=== PATIENT | female | born 1985 | race African-American/Black ===

== ENCOUNTER 2017-09-03 07:10 | Inpatient (IN) | payer OTHER ==
[~2017-09-03 07:10] MED LIST: CITRIC ACID/SODIUM CITRATE 30 ML UNIT-DOSE CUP PO ONE; ELECTROLYTE-148 SOLN 500 ML IV ONE
[2017-09-03] MEDS ORDERED: ELECTROLYTE-148 SOLN 1,000 ML IV SCH ×2 (07:30→08:00)
--- NOTE | 2017-09-03 07:58 | HP ---
Past Medical History - Primary Care Physician PCP:: Jose Armando Salazar - Admission Chief Complaint: 39 weeks, previous c/s for repeat c/s and BTL History Source: Patient Limitations to Obtaining History: No Limitations - Past Medical History ...: 4 ...Para: 3 Infectious Disease: Yes: Other (herpes) - Past Surgical History Past Surgical History: Yes: Hx Myomectomy: No Hx Transabdominal Cerclage: No - Smoking History Smoking history: Never smoked Have you smoked in the past 12 months: No Aproximately how many cigarettes per day: 0 - Alcohol/Substance Use Hx Alcohol Use: No - Social History Usual Living Arrangement: Yes: With Spouse History of Recent Travel: No Home Medications - Allergies Allergies/Adverse Reactions: Allergies Allergy/AdvReac Type Severity Reaction Status Date / Time aspirin Allergy Itching Verified 09/03/17 07:49 - Home Medications Home Medications: Ambulatory Orders Acyclovir [Zovirax -] 800 mg PO DAILY 09/03/17 Ferrous Sulfate [Feosol] 325 mg PO DAILY 09/03/17 Vitamins (Sjr) - 1 tab PO DAILY 09/03/17 Review of Systems - Review of Systems Constitutional: reports: No Symptoms Eyes: reports: No Symptoms HENT: reports: No Symptoms Neck: reports: No Symptoms Cardiovascular: reports: No Symptoms Respiratory: reports: No Symptoms Gastrointestinal: reports: No Symptoms Genitourinary: reports: No Symptoms Breasts: reports: No Symptoms Reported Musculoskeletal: reports: No Symptoms Integumentary: reports: No Symptoms Neurological: reports: No Symptoms Endocrine: reports: No Symptoms Hematology/Lymphatic: reports: No Symptoms Psychiatric: reports: No Symptoms Physical Exam - Maternity Constitutional: Yes: Well Nourished, No Distress, Calm Eyes: Yes: WNL, Conjunctiva Clear, EOM Intact HENT: Yes: WNL, Atraumatic, Normocephalic Neck: Yes: WNL, Supple, Trachea Midline Cardiovascular: Yes: WNL, Regular Rate and Rhythm Breast(s): Yes: WNL - Abdominal Exam/OB Fundal Height: 40 Number of Fetuses: Single Presentation: Vertex Contractions: No Intensity: Unaware Monitor Mode: External Accelerations: Uniform Decelerations: None - Vaginal Exam/OB Vaginal Bleediing: No Speculum Exam: No Dilatation (cm): closed Effacement (%): 0 Amniotic Membrane Status: Intact Presentation: Vertex/Position Station: -3 - Physical Exam Edema: Yes Edema: LLE: Trace, RLE: Trace Deep Tendon Reflex Grade: Normal +2 Hemorrhage Risk Assessment - Risk Factors Medium Risk Factors: Yes: Prior , uterine surgery,or multiple laparotomies Risk Score: 1 Risk Level: Medium Risk Problem List - Problems (1) with 39 completed weeks gestation Code(s): Z3A.39 - 39 WEEKS GESTATION OF (2) Previous delivery affecting , antepartum Code(s): O34.219 - MATERNAL CARE FOR UNSP TYPE SCAR FROM PREVIOUS DEL (3) Sterilization Code(s): Z30.2 - ENCOUNTER FOR STERILIZATION Assessment/Plan repeat c/s and BTL, rba discussed
[2017-09-03] MEDS ORDERED: CITRIC ACID/SODIUM CITRATE 30 ML UNIT-DOSE CUP PO ONE ×2 (07:59→08:00)
[2017-09-03 08:32] VITALS: BMI 37.4
[2017-09-03] MEDS ORDERED: IBUPROFEN 600 MG TABLET (FP) PO PRN (08:33)
[2017-09-03] MEDS ORDERED: ONDANSETRON 4 MG/2 ML VIAL IVPUSH PRN (08:33)
[2017-09-03] MEDS ORDERED: WITCH HAZEL 50% (TUCKS) 40 PAD/JAR PAD TP PRN (09:27)
[2017-09-03] MEDS ORDERED: diphenhydrAMINE HCL 25 MG CAPSULE (FP) PO PRN (09:27)
[2017-09-03] MEDS ORDERED: BENZOCAINE 20% 57 GM BOTTLE TP PRN (09:27)
[2017-09-03] MEDS ORDERED: BENZOCAINE 28 GM HEMORRHOIDAL OINTMENT PR PRN (09:27)
[2017-09-03] MEDS ORDERED: IBUPROFEN 800 MG/8 ML IJ IVPB PRN (09:27)
[2017-09-03] MEDS ORDERED: oxyCODONE HCL 5 MG TABLET PO PRN ×2 (09:27)
[2017-09-03] MEDS ORDERED: METHYLERGONOVINE MALEATE 0.2 MG/1 ML AMP IM PRN (09:27)
[2017-09-03] MEDS ORDERED: OXYTOCIN 20 UNITS in 0.9% NS 1,000 ML IV SCH (09:30)
[2017-09-03] MEDS ORDERED: DESFLURANE GAS 240 ML BOTTLE IH ONE (09:46)
[2017-09-03] MEDS ORDERED: CEFAZOLIN 1 GM/D5W 50 ML IVPB SCH (10:00)
[2017-09-03] MEDS ORDERED: ACETAMINOPHEN 1000 MG/100 ML VIAL (NON FORMULARY) IVPB ONE (10:08)
[2017-09-03] MEDS ORDERED: ACETAMINOPHEN 1000 MG/100 ML VIAL (NON FORMULARY) IVPB PRN (10:48)
--- NOTE | 2017-09-03 13:05 | OP ---
DATE OF OPERATION: 09/03/2017 PREOPERATIVE DIAGNOSIS: , 39 weeks, 3 previous sections, request for repeat section. POSTOPERATIVE DIAGNOSIS: , 39 weeks, 3 previous sections, request for repeat section. PROCEDURE: Repeat low segment transverse section. SURGEON: Jose Armando Salazar MD UNEMPLOYMENT BENEFITS CLAIMS TAKER: KAI Root ANESTHESIA: Spinal. ANESTHESIOLOGIST: Rayray Harper MD ESTIMATED BLOOD LOSS: 500 mL. OPERATION: The patient was taken to the operating room, had adequate spinal anesthesia. Abdomen and perineum were prepped and draped. Pfannenstiel abdominal skin incision was made. Abdominal wall was cut layer by layer until peritoneum was exposed and incised. Upon entering the abdominal cavity, lower uterine segment was identified and uterovesical fold of peritoneum was established, bladder was pushed down. Then, with the lower blade of the [place] retractor in the pelvis, a low transverse uterine incision was made. Amniotic sac was entered. Clear fluid, head delivered from right occiput transverse position. Nasopharynx was suctioned, and live baby boy was delivered. Apgars 9, 9. Placenta was delivered manually. Uterine cavity was cleaned of all remaining tissue. Uterine incision was closed using 2 layers, 1st layer with 0 Biosyn continuous suture, the 2nd layer with 0 Biosyn imbricating the 1st layer. Bladder flap was closed with 0 Biosyn continuous suture. Both tubes and ovaries were checked, were normal. No active bleeding was seen. All the lap count, sponge count, instrument count were correct. Patient has declined to have tubal ligation at the time of the fully aware of all the risks. Then, peritoneum was closed with 0 Biosyn continuous suture. Muscles were brought together with interrupted suture of 0 Biosyn. Fascia was closed with 0 Biosyn continuous suture. Subcutaneous fat closed with interrupted suture of 0 Biosyn, and the skin was closed with shashi. Patient tolerated the procedure well, left the OR in good condition. Rolanda [id number]
[2017-09-03] MEDS: CEFAZOLIN 1 GM/D5W 50 ML IVPB SCH (15:57)
[2017-09-03] MEDS ORDERED: DEXTROSE 5%-LACTATED RINGERS 1,000 ML IV SCH (17:30)
[2017-09-04] MEDS: CEFAZOLIN 1 GM/D5W 50 ML IVPB SCH (00:25)
[2017-09-04] MEDS: ACETAMINOPHEN 325 MG TABLET (FP) PO PRN ×2 (01:31→14:36)
[2017-09-04] MEDS: IBUPROFEN 600 MG TABLET (FP) PO PRN ×2 (01:31→14:37)
--- NOTE | 2017-09-04 08:07 | PN ---
Progress Note (short form) - Note Progress Note: Anesthesia/Pain Pt seen and examined S:alert and awake comfortable O: Vital Signs Temperature 98.2 F 09/04/17 06:00 Pulse Rate 89 09/04/17 06:00 Respiratory Rate 20 09/04/17 06:55 Blood Pressure 96/59 09/04/17 06:00 O2 Sat by Pulse Oximetry (%) 98 09/03/17 10:15 with 39 completed weeks gestation (Acute) Previous delivery affecting , antepartum (Acute) Sterilization (Acute) A/P:s/p C section Doing well post op Continue current care Rayray Harper MD
[2017-09-04 08:11] LABS: BASOPHIL 0.6 % (0-2.0); EOSINOPHIL 0.5 % (0-4.5); MCH 29.3 pg (25.7-33.7); MCHC 33.8 g/dl (32.0-36.0); MEAN CELL VOLUME 86.8 fl (80-96); MEAN PLT VOLUME 9.4 fl (7.5-11.1); NEUTROPHILS 72.3 % (42.8-82.8); PLATELET COUNT 162 K/MM3 (134-434); RDW 13.6 % (11.6-15.6); WHITE BLOOD COUNT 9.6 K/mm3 (4.0-10.0)
[2017-09-04] MEDS ORDERED: BISACODYL 10 MG SUPP.RECT PR PRN (09:27)
[2017-09-04] MEDS ORDERED: FLU VACC QS2017-18 36MOS UP/PF 60 MCG/0.5 ML SYRINGE IM ONE (10:00)
[2017-09-04] MEDS ORDERED: DIPHTH,PERTUSS(ACELL),TET 0.5 ML DISP.SYRIN IM ONE (10:00)
[2017-09-04] MEDS: ENOXAPARIN NA (PORCINE) 40 MG/0.4 ML DISP.SYRIN SQ SCH (10:26)
--- NOTE | 2017-09-04 12:11 | PN ---
Post Progress Note Post Day: 1 Type of Delivery: Repeat C/S Vital Signs: Vital Signs Temperature 98.2 F 09/04/17 06:00 Pulse Rate 89 09/04/17 06:00 Respiratory Rate 20 09/04/17 08:00 Blood Pressure 96/59 09/04/17 06:00 O2 Sat by Pulse Oximetry (%) 98 09/03/17 10:15 Breast Exam: Yes: Soft Uterus: Yes: Fundus Firm Incision: Yes: Dressing dry and intact Abdomen/GI: Yes: Abdomen soft Lochia: Yes: Rubra Lochia, amount: Small Extremities: Yes: Calves non-tender Perineum: Yes: Intact Activity: Ambulating - Labs Labs: CBC WBC 9.6 K/mm3 (4.0-10.0) D 09/04/17 07:45 RBC 4.19 M/mm3 (3.60-5.2) 09/04/17 07:45 Hgb 12.3 GM/dL (10.7-15.3) 09/04/17 07:45 Hct 36.4 % (32.4-45.2) 09/04/17 07:45 MCV 86.8 fl (80-96) 09/04/17 07:45 MCH 29.3 pg (25.7-33.7) 09/04/17 07:45 MCHC 33.8 g/dl (32.0-36.0) 09/04/17 07:45 RDW 13.6 % (11.6-15.6) 09/04/17 07:45 Plt Count 162 K/MM3 (134-434) 09/04/17 07:45 MPV 9.4 fl (7.5-11.1) 09/04/17 07:45 Neutrophils % 72.3 % (42.8-82.8) 09/04/17 07:45 Lymphocytes % 17.0 % (8-40) D 09/04/17 07:45 Monocytes % 9.6 % (3.8-10.2) 09/04/17 07:45 Eosinophils % 0.5 % (0-4.5) 09/04/17 07:45 Basophils % 0.6 % (0-2.0) 09/04/17 07:45 Assessment/Plan doing well oob reg diet normal po care
[2017-09-04] MEDS: SIMETHICONE 80 MG TAB.CHEW (FP) PO PRN (14:36)
[2017-09-05] MEDS: SIMETHICONE 80 MG TAB.CHEW (FP) PO PRN ×2 (00:39→15:27)
[2017-09-05] MEDS: ACETAMINOPHEN 325 MG TABLET (FP) PO PRN ×2 (00:39→15:27)
[2017-09-05] MEDS: IBUPROFEN 600 MG TABLET (FP) PO PRN ×2 (00:40→15:28)
[2017-09-05] MEDS: ENOXAPARIN NA (PORCINE) 40 MG/0.4 ML DISP.SYRIN SQ SCH (09:26)
--- NOTE | 2017-09-05 21:45 | PN ---
Progress Note (short form) - Note Progress Note: pod 2 , s/p c/s doing well. ambulation , CBC, BMP 09/04/17 07:45 Last Vital Signs Temp Pulse Resp BP Pulse Ox 97.2 F L 83 20 112/68 98 09/05/17 09:09 09/05/17 09:09 09/05/17 09:09 09/05/17 09:09 09/03/17 10:15 dry cough, no chest pain lungs clear abdomen soft, no distension, no cva incision dry, clean no calf tenderness impression bronchitis , Robitussin prn, ambulate Problem List - Problems (1) with 39 completed weeks gestation Code(s): Z3A.39 - 39 WEEKS GESTATION OF (2) Previous delivery affecting , antepartum Code(s): O34.219 - MATERNAL CARE FOR UNSP TYPE SCAR FROM PREVIOUS DEL (3) Sterilization Code(s): Z30.2 - ENCOUNTER FOR STERILIZATION
[2017-09-05] MEDS ORDERED: SENNOSIDES/DOCUSATE COMBO (SENNA PLUS) TABLET (UD) PO PRN (22:00)
[2017-09-06] MEDS: SIMETHICONE 80 MG TAB.CHEW (FP) PO PRN ×3 (00:06→21:43)
[2017-09-06] MEDS: ACETAMINOPHEN 325 MG TABLET (FP) PO PRN ×3 (00:06→21:44)
[2017-09-06] MEDS: IBUPROFEN 600 MG TABLET (FP) PO PRN ×3 (00:07→21:43)
[2017-09-06] MEDS: guaiFENesin/D-METHORPHAN HB 10 ML UNIT-DOSE CUPS PO PRN ×4 (01:08→21:43)
[2017-09-06 07:51] LABS: BASOPHIL 0.7 % (0-2.0); EOSINOPHIL 3.2 % (0-4.5); MCHC 34.3 g/dl (32.0-36.0); MEAN CELL VOLUME 87.6 fl (80-96); MEAN PLT VOLUME 9.8 fl (7.5-11.1); NEUTROPHILS 52.8 % (42.8-82.8); PLATELET COUNT 184 K/MM3 (134-434); RDW 13.7 % (11.6-15.6); WHITE BLOOD COUNT 4.7 K/mm3 (4.0-10.0)
--- NOTE | 2017-09-06 07:59 | PN ---
Progress Note (short form) - Note Progress Note: pod 3 ,doing well, ambulating abdomen soft, no distension, no cva incision dry, healing wee no excess vaginal bleeding, no calf tenderness plan ambulate, d/c home in am Problem List - Problems (1) with 39 completed weeks gestation Code(s): Z3A.39 - 39 WEEKS GESTATION OF (2) Previous delivery affecting , antepartum Code(s): O34.219 - MATERNAL CARE FOR UNSP TYPE SCAR FROM PREVIOUS DEL (3) Sterilization Code(s): Z30.2 - ENCOUNTER FOR STERILIZATION
[2017-09-06] MEDS: ENOXAPARIN NA (PORCINE) 40 MG/0.4 ML DISP.SYRIN SQ SCH (09:35)
[2017-09-07] MEDS: IBUPROFEN 600 MG TABLET (FP) PO PRN (04:05)
[2017-09-07] MEDS: SIMETHICONE 80 MG TAB.CHEW (FP) PO PRN (04:05)
[2017-09-07] MEDS: guaiFENesin/D-METHORPHAN HB 10 ML UNIT-DOSE CUPS PO PRN (04:05)
[2017-09-07] MEDS: ACETAMINOPHEN 325 MG TABLET (FP) PO PRN (04:05)
--- NOTE | 2017-09-07 06:23 | PN ---
Post Progress Note - Subjective Subjective: doing well Post Day: 4 Type of Delivery: Repeat C/S Vital Signs: Vital Signs Temperature 99.0 F 09/06/17 21:31 Pulse Rate 90 09/06/17 21:31 Respiratory Rate 20 09/06/17 21:31 Blood Pressure 132/76 09/06/17 21:31 O2 Sat by Pulse Oximetry (%) 98 09/03/17 10:15 Breast Exam: Yes: Soft Uterus: Yes: Fundus Firm Incision: Yes: Dressing dry and intact Abdomen/GI: Yes: Abdomen soft Lochia: Yes: Rubra Lochia, amount: Small Extremities: Yes: Calves non-tender Perineum: Yes: Intact Activity: Ambulating - Labs Labs: CBC WBC 4.7 K/mm3 (4.0-10.0) D 09/06/17 05:35 RBC 3.50 M/mm3 (3.60-5.2) L 09/06/17 05:35 Hgb 10.5 GM/dL (10.7-15.3) L D 09/06/17 05:35 Hct 30.7 % (32.4-45.2) L D 09/06/17 05:35 MCV 87.6 fl (80-96) 09/06/17 05:35 MCH 30.0 pg (25.7-33.7) 09/06/17 05:35 MCHC 34.3 g/dl (32.0-36.0) 09/06/17 05:35 RDW 13.7 % (11.6-15.6) 09/06/17 05:35 Plt Count 184 K/MM3 (134-434) 09/06/17 05:35 MPV 9.8 fl (7.5-11.1) 09/06/17 05:35 Neutrophils % 52.8 % (42.8-82.8) D 09/06/17 05:35 Lymphocytes % 30.3 % (8-40) D 09/06/17 05:35 Monocytes % 13.0 % (3.8-10.2) H 09/06/17 05:35 Eosinophils % 3.2 % (0-4.5) D 09/06/17 05:35 Basophils % 0.7 % (0-2.0) 10/27/17 05:35 Assessment/Plan as above oob reg diet dc home today
[2017-09-07] MEDS: ENOXAPARIN NA (PORCINE) 40 MG/0.4 ML DISP.SYRIN SQ SCH (09:43)
[2017-09-07 11:38] VITALS: BP 120/72; PULSE 81; TEMP 98.8
--- NOTE | 2017-09-10 12:02 | PATH ---
Surgical Pathology Report Patient Name: KERRY MARTINEZ [facility]. Rec. #: [id number] /Age/Gender: 1985 (Age: 32) / F Account: [id number] Location: [facility] OBS/AUDIO EXPERIENCE EXPERT Taken: 09/03/2017 Received: 09/04/2017 Reported: 09/10/2017 Physicians: Jose Armando Salazar M.D. Specimen(s) Received PLACENTA Clinical History Previous 02/20, 02/22 Final Diagnosis PLACENTA, SECTION: 648 g THIRD TRIMESTER PLACENTA WITH THREE VESSEL UMBILICAL CORD AND UNREMARKABLE PLACENTAL MEMBRANES. Electronically Signed Elena Valderrama M.D. Gross Description The specimen is received fresh labeled placenta and is a 648 gram, 18.0 x 16.0 x 2.8 cm. placenta with attached membranes and umbilical cord. The attached membranes are escobedo, translucent with focal opacities and insert marginally. The umbilical cord measures 28 cm. in length and averages 1.3 cm. in diameter. The cord inserts eccentrically, 1 cm. to the nearest margin. No true knots or strictures are identified. Cut surface of the umbilical cord reveals 3 vessels. The surface is wilson blue with moderate fibrin deposition and appropriate caliber vessels. The maternal surface is red-brown with focal defects. Sectioning reveals red-brown, spongy parenchyma. No lesions are identified. Product Finisher sections are submitted in three cassettes as follows: 1- membrane rolls and umbilical cord; 2-3- full thickness sections of placenta. 09/05/201709/05/2017
--- NOTE | 2017-09-13 07:58 | DS ---
Physical Exam-PRECISION MACHINE OPERATOR Vital Signs: Vital Signs Temperature 98.8 F 09/07/17 10:00 Pulse Rate 81 09/07/17 10:00 Respiratory Rate 20 09/07/17 10:00 Blood Pressure 120/72 09/07/17 10:00 O2 Sat by Pulse Oximetry (%) 98 09/03/17 10:15 Constitutional: Yes: Well Nourished, No Distress, Calm Eyes: Yes: WNL, Conjunctiva Clear, EOM Intact HENT: Yes: WNL, Atraumatic, Normocephalic Neck: Yes: WNL, Supple, Trachea Midline Cardiovascular: Yes: WNL, Regular Rate and Rhythm Respiratory: Yes: WNL, Regular, CTA Bilaterally Gastrointestinal: Yes: WNL ...Rectal Exam: Yes: WNL Renal/: Yes: WNL ....Post : Yes: Uterus firm, Uterus non-tender, Slight lochia rubra Breast(s): Yes: WNL Musculoskeletal: Yes: WNL Extremities: Yes: WNL Integumentary: Yes: WNL Wound/Incision: Yes: Clean/Dry, Well Approximated, [place] Intact Neurological: Yes: WNL, Alert, Oriented ...Motor Strength: WNL Psychiatric: Yes: WNL, Alert, Oriented Labs: CBC, BMP 09/06/17 05:35 Delivery - Delivery Section: Repeat, Low Flap Transverse (no complication) Type of Anesthesia: Spinal Episiotomy/Laceration: None EBL (cc): 500 Delivery, Single - Stages of Labor Date of Delivery: 09/03/17 Time of Delivery: 08:36 Time Placenta Delivered: 08:37 - Condition of Mixer Attendant/Career Portals Teacher Present: Yes Name: Yessi Osborne Infant Gender: Male Weight: 8 lb 6 oz Position: Right, OT Total Hours ROM (Hrs/Mins): 0hrs 2min - 1 Minute Total Score: 9 5 Minutes Total Score: 9 - Feeding Plan Initial Plan: Exclusive throughout hospitalization Discharge Summary Reason For Visit: REPEAT Procedures: Principal: repeat LST c/s Hospital Course: uneventful Condition: Good - Instructions Diet, Activity, Other Instructions: see next week for staple removal Referrals: Jose Armando Salazar MD [Staff Physician] - Disposition: HOME - Home Medications Comprehensive Discharge Medication List: Ambulatory Orders Acyclovir [Zovirax -] 800 mg PO DAILY 09/03/17 Ferrous Sulfate [Feosol] 325 mg PO DAILY 09/03/17 Vitamins (Sjr) - 1 tab PO DAILY 09/03/17 Ibuprofen [Motrin -] 600 mg PO TID #21 tablet 09/07/17
== END 2017-09-07 11:35 | disposition home or self-care (01) | DRG 766 ==
LOC: JLDR 07:10 → J3W 10:31
PROVIDERS: ADMIT Obstetrics & Gynecology; ATTEND Obstetrics & Gynecology
PROC: 10D00Z1 Extraction of Products of Conception, Low, Open Approach (ICD-10-PCS; principal; 2017-09-03)
PROC: 0U570ZZ Destruction of Bilateral Fallopian Tubes, Open Approach (ICD-10-PCS; 2017-09-03)
DX: O34.211 Maternal care for low transverse scar from previous cesarean delivery (principal); Z3A.39 39 weeks gestation of pregnancy; Z37.0 Single live birth; Z30.2 Encounter for sterilization; Z68.37 Body mass index [BMI] 37.0-37.9, adult
CPT/HCPCS: 36415; 85025; 88307-TC; 90686; 90715; 94010; G0008